=== PATIENT | male | born 1975 | race Caucasian/White ===

== ENCOUNTER 2024-10-29 12:17 | Emergency (ER) | payer MEDICAID ==
[~2024-10-29] VITALS: Ht 162.6 cm; Wt 70.3 kg
[2024-10-29 12:22] VITALS: TEMP 98.4
--- NOTE | 2024-10-29 12:51 | ELECTROCARDIOGRAPH REPORT ---
[facility] Test Date: 2024-10-29 Test Time: 12:49:20 Pat Name: PAULA IRIZARRY Department: [facility] Patient ID: [facility]-[id number] Room: Gender: M [employer]oe Patternmaker: : 1975 Requested By: KELVIN GONZALEZ Order Number: [id number] Reading MD: Measurements Intervals [place] Rate: 76 P: 33 NH: 155 QRS: -1 QRSD: 74 T: 61 QT: 350 QTc: 394 Interpretive Statements Sinus rhythm Anteroseptal infarct, old Please click the below link to view image of tracing.
--- NOTE | 2024-10-29 14:46 | Physician Documentation ---
History of Present Illness ~ Chief Complaint: Anxiety Stated Complaint: ANXIETY Time Seen by MD: 14:05 Mode of Arrival: EMS HPI Patient is a 49-year-old male that presents to the emergency department for evaluation of shortness of breath and panic attack. Patient reports that he was at a facility earlier today ate lunch had a panic attack and was kicked out of the facility. I assume this is where the patient is staying currently as he now says he has no where to go to and is very concerned. Medication Reconciliation Allergies: Uncoded Allergies: PENICILLIN (Allergy, Unknown, 10/29/24) SULF DRUGS (Allergy, Unknown, 10/29/24) Past Medical History Past Medical History: No Pertinent History Past Surgical History: no surgical history Alcohol Use: Rarely Drug Use: methamphetamine Lives In: Home Review of Systems ROS As stated above in the HPI, otherwise all systems are reviewed and negative. Physical Exam Vital Signs: Temperature: 98.4, Source: Temporal, Heart Rate: 80, Respiratory Rate: 22, BP: 114/88, Pulse Oximetry: 100, Weight: 70.300 Oxygen Flow Rate: 0 Physical Exam VITALS: Reviewed and as above. GENERAL: Alert, no apparent distress, does appear tearful. HEENT: Normocephalic, atraumatic, PERRL, EOMI, dry mucosa, no erythema RESPIRATORY: Lungs clear, normal breath sounds, no respiratory distress. CHEST: No accessory muscle use, no retractions CV: Regular rate, rhythm, no edema, no murmur, No: JVD GI: Soft, non-tender, bowels sounds present, no rebound, guarding, or rigidity BACK: No CVA tenderness, or swelling MUSCULOSKELETAL No deformities, no edema SKIN: Warm and dry, no rash NEURO: Oriented x4, No motor or sensory deficit PSYCH: Normal mood and affect, no agitation Progress Results/Orders Results/Orders Vital Signs 10/29/24 10/29/24 10/29/24 12:22 12:51 12:53 Temp 98.4 Pulse 82 80 Resp 17 22 22 B/P (MAP) 119/85 114/88 (97) Pulse Ox 98 100 O2 Flow Rate 0 0 Medical Decision Making Findings Based on presentation examination and diagnostics, this patient presents with symptoms consistent with acute anxiety reaction / panic attack. Low suspicion for acute cardiopulmonary process including ACS, PE, or thoracic aortic dissection. Denies any ingestions or any other medical complaints. No evidence of alcohol withdrawal symptoms. Given history and physical presentation not consistent with overt toxidrome, ingestion. Presentation not consistent with a medical emergency at this time. No acute indication for psychiatric consultation (without SI/HI, AH/VH). Cautious return precautions discussed with full understanding. Patient will follow up with his primary care provider at either admission, the [facility], [facility]. Patient will return to the emergency department if he has any worsening of his current symptoms or any additional concerning symptoms that we discussed here today i.e. additional chest pain nausea vomiting shortness of breath headache or any other concerning symptoms associated with the current symptoms. Patient is being prov ided with a list of local resources for housing and other needs. Differential Dx:Considerations: Include: Alcohol abuse, Anxiety, Bipolar disorder, Conversion disorder, Depression, Encephaloathy, Homicidal, Panic disorder, Personality disorder, Schizophrenia, Substance abuse, Suicidal, Other Departure Disposition: 01 HOME / SELF CARE / HOMELESS Impression: Primary Impression: Anxiety Additional Impression: Panic attack Discharge Instructions: Generalized Anxiety Disorder, Adult, Panic Attack Additional Instructions: This patient presents with symptoms consistent with acute anxiety reaction / panic attack. Low suspicion for acute cardiopulmonary process including ACS, PE, or thoracic aortic dissection. Denies any ingestions or any other medical complaints. No evidence of alcohol withdrawal symptoms. Given history and physical presentation not consistent with overt toxidrome, ingestion. Presentation not consistent with a medical emergency at this time. No acute in dication for psychiatric consultation (without SI/HI, AH/VH). Cautious return precautions discussed with full understanding. Patient will follow up with his primary care provider at either admission, the [facility], [facility]. Patient will return to the emergency department if he has any worsening of his current symptoms or any additional concerning symptoms that we discussed here today i.e. additional chest pain nausea vomiting shortness of breath headache or any other concerning symptoms associated with the current symptoms. Patient is being provided with a list of local resources for housing and other needs. Referrals: NO PRIMARY CARE PROVIDER (PCP) Prescriptions Clonidine HCl (Clonidine HCl) 0.1 Mg Tablet 1 TAB PO HS for 5 Days, #5 TAB 0 Refills Prov: LIZ LOPEZ 10/29/24 Education Educated: Patient Educated regarding: diagnosis, treatment, need for follow up Signature Scribe Signature: A Attestation: Scribed for Liz Lopez by RUTHIE Tom . 10/29/24 15:28 LIZ LOPEZ Oct 29, 2024 14:46
[2024-10-29] MEDS ORDERED: CLON0.1T2 PO (15:28)
[2024-10-29 15:33] VITALS: BP 119/83; PULSE 57; RESP 23; O2SAT 97
== END 2024-10-29 15:42 | disposition home or self-care (01) ==
LOC: ER 12:17
DX: F41.0 Panic disorder [episodic paroxysmal anxiety] (principal); R06.02 Shortness of breath
CPT/HCPCS: 93005; 99283